=== PATIENT | female | born 1945 | race Caucasian/White ===

== ENCOUNTER → 2016-12-03 | Outpatient (CLI) | payer MEDICARE, BC ==
[~2016-12-03] MED LIST: ALDACTONE25 MG PO; AMARYL1 MG; AMARYL4 MG PO; BISOPROLOL FUMAR5 MG PO; CALCIUM 600 +1 EAC3 PO; CEFTIN250 MG PO; CITRACAL+D(315M1 TAB PO; COUMADIN **IA1 MG; COUMADIN 4MG **4 MG PO; DEXAMETHASONE4 MG PO; K-TAB 10MEQ10 MEQ PO; KEFLEX500 MG; KEFLEX500 MG PO; LASIX20 MG PO; LEVAQUIN 750 M750 MG PO; LEVAQUIN ORA25 MG/ML; LEVAQUIN500 MG PO; LIPITOR80 MG PO; MULTI FOR HER1 EACH PO; NITROSTAT0.4 MG SL; NORCO 5-325 MG1 TAB PO; PEPCID20 MG PO; PLAVIX75 MG PO; PROTONIX40 MG PO; RANEXA ER500 MG PO; THERA-M1 EACH PO; TRAMADOL HCL50 MG PO; TYLENOL ARTHRI650 MG PO; TYLENOL325 MG PO; ULTRAM50 MG PO; VALTREX1000 MG PO; ZESTRIL2.5 MG PO; [UNRECOGNIZED DRUG - OTHER]
== END | disposition disaster alternative care site (69) ==
LOC: GRAD 12:23
DX: M43.16 Spondylolisthesis, lumbar region (principal); M81.0 Age-related osteoporosis without current pathological fracture; M47.896 Other spondylosis, lumbar region; M48.06 Spinal stenosis, lumbar region; M41.9 Scoliosis, unspecified

== ENCOUNTER → 2017-02-26 | Outpatient (CLI) | payer MEDICARE, BC | END | disposition disaster alternative care site (69) | LOC: GRAD 13:59 | DX: R19.8 Other specified symptoms and signs involving the digestive system and abdomen (principal); C50.412 Malignant neoplasm of upper-outer quadrant of left female breast; I82.401 Acute embolism and thrombosis of unspecified deep veins of right lower extremity; N64.89 Other specified disorders of breast; Z92.21 Personal history of antineoplastic chemotherapy ==